=== PATIENT | male | born 1955 | race Caucasian/White ===

== ENCOUNTER 2018-07-26 09:38 | Emergency (ER) | payer OTHER ==
[~2018-07-26] VITALS: Ht 172.7 cm; Wt 142.9 kg
[~2018-07-26 09:38] MED LIST: ADDERALL 30 MG30 MG PO; AMLODIPINE BESY10 MG PO; AZITHROMYCIN 2250 MG PO; CIPRO500 MG; CLOBETASOL PROP60 G3; CLONAZEPAM 1 MG1 M1; CLONAZEPAM 1 MG1 M1 PO; CONCERTA36 M1 PO; COZAAR 50 MG TA50 M1; CRESTOR10 MG PO; MEDROLDOSEPACK PO; NORCO 5-325 TA1 EACH PO; PRILOSEC 20 MG20 MG PO; PRILOSEC20 MG; PRISTIQ50 M1 PO; PROAIR HFA8.5 GM PO; TRICOR145 MG PO; VOLTAREN GEL 1100 G2; [UNRECOGNIZED DRUG - MIXTURE]
[2018-07-26] MEDS ORDERED: CLONAZEPAM 1 MG1 M1 PO (09:48)
[2018-07-26] MEDS ORDERED: NEURONTIN600 MG PO (09:49)
[2018-07-26] MEDS ORDERED: MUSCLE RELAXER (09:49)
[2018-07-26 10:29] LABS: ABSOLUTE EOSINOPHILS 0.1 thou/uL (0.0-0.7); ABSOLUTE LYMPHOCYTES 1.7 thou/uL (0.8-5.3); ABSOLUTE MONOCYTES 1.2 thou/uL (0.0-1.2); ABSOLUTE NEUTROPHILS 4.4 thou/uL (1.6-8.1); BASOPHILS 0.7 %; EOSINOPHILS 0.7 %; HEMATOCRIT 46.6 % (42.0-52.0); HEMOGLOBIN 15.9 gm/dL (14.0-18.0); LYMPHOCYTES 22.9 %; MCH 28.7 pg (26.0-34.0); MCV 84.3 fL (80.0-100.0); MONOCYTES 16.3 %; NUCLEATED RBCS 0 /100WBC; PLATELET COUNT* 220 thou/uL (150-400); POLYS 59.4 %; RBC 5.53 mil/uL (4.50-6.00); RDW-CV 14.2 % (10.5-14.5); WBC 7.4 thou/uL (4.0-11.0)
[2018-07-26 10:33] LABS: ANION GAP 11 mmol/L (7-16); BUN 14 mg/dL (7-18); CHLORIDE 103 mmol/L (98-107); CO2 25 mmol/L (21-32); CREATININE 1.2 mg/dL (0.6-1.3); GLUCOSE 101 mg/dL (70-99); SODIUM 139 mmol/L (136-145)
[2018-07-26 10:42] LABS: ALBUMIN 3.8 g/dL (3.4-5.0); ALKALINE PHOSPHATASE 86 U/L (46-116); LIPASE 179 U/L (73-393); SGOT 50 U/L (15-37); SGPT 68 U/L (30-65); TOTAL BILIRUBIN 0.9 mg/dL (<0.1-1.0); TROPONIN-I LEVEL <0.06 ng/mL (<0.06)
[2018-07-26 11:26] LABS: APTT 27.4 Seconds (25.0-31.3); INR 1.1; PROTIME 10.8 Seconds (9.20-11.50)
[2018-07-26 12:29] VITALS: BP 129/71
--- NOTE | 2018-07-27 10:25 | EKG ---
[place] [address] ELECTROCARDIOGRAM REPORT Name: RENARD BARR Room: [facility]#: [id number] Admission: 07/26/18 Attend Phys: Discharge: 07/26/18 Date of : 59 Report #: [id number] THIS REPORT FOR: //name// [facility] ED Test Date: 2018-07-26 Test Time: 10:37:15 Pat Name: RENARD CORTNEY Department: Room: Gender: M [employer]: : 1955 Requested By: Molly Frias Order Number: [id number] MD: Angel Pnenington Measurements Intervals [place] Rate: 82 P: 7 TN: 169 QRS: 5 QRSD: 96 T: 3 QT: 361 QTc: 422 Interpretive Statements Sinus rhythm Abnormal R-wave progression, late transition Borderline T abnormalities, inferior leads Baseline wander in lead(s) I,II,aVR,aVF,V1,V2,V4 No previous ECG available for comparison Electronically Signed On 07-27-2018 10:24:55 CDT by Angel Pennington [email or web address] <ELECTRONICALLY SIGNED> By: Angel Pennington MD, FACC 07/27/18 1024 1037 1037 Angel Pennington MD, [facility] /EPI
== END 2018-07-26 12:30 | disposition home or self-care (01) ==
LOC: M.ERS 09:38
PROVIDERS: Personal Emergency Response Attendant
DX: K52.9 Noninfective gastroenteritis and colitis, unspecified (principal); I10 Essential (primary) hypertension; E78.00 Pure hypercholesterolemia, unspecified; K21.9 Gastro-esophageal reflux disease without esophagitis